=== PATIENT | female | born 1940 | race Caucasian/White ===

== ENCOUNTER → 2017-02-15 | Outpatient (CLI) | payer MEDICARE, BC ==
[~2017-02-15] MED LIST: ADVAIR DIS1 PUFF/DOS IH; ASA CHILDREN'S81 MG PO; ATORVASTATIN CA40 MG PO; CALTRATE-600 D600 MG PO; COQ-10100 MG PO; COREG DPS3.125 MG PO; ICAPS TABLET1 EACH PO; LASIX DPS20 MG PO; LIPITOR DPS40 MG PO; MAG-OX400 MG PO; MAGNESIUM100 MG PO; MIRALAX17 GM PO; MOTRIN-DPS400 MG PO; MUCINEX600 MG PO; NASACORT16.9 ML NS; NASONEX NASAL S17 GM NS; OMEGA-3 DPS1000 MG PO; PRESERVISION A1 EACH PO; PROBIOTIC1 EAC1 PO; PROVENTIL HFA6.7 GM IH; SENOKOT S1 TAB PO; TURMERIC500 MG PO; TYLENOL #3 DPS1 TAB PO; TYLENOL DPS325 MG PO; ULTRAM DPS50 MG PO; VITAMIN B-12500 MCG PO; VITAMIN B650 MG PO; VITAMIN D10000 UNIT PO; XARELTO10 MG PO; ZESTRIL DPS10 MG PO
== END | disposition home or self-care (01) ==
LOC: RAD.S 12:29
DX: Z12.31 Encounter for screening mammogram for malignant neoplasm of breast (principal); N64.89 Other specified disorders of breast

== ENCOUNTER → 2017-03-19 | Outpatient (CLI) | payer MEDICARE, BC | END | disposition home or self-care (01) | LOC: PTH.S 08:55 | DX: Z01.818 Encounter for other preprocedural examination (principal); I10 Essential (primary) hypertension ==

== ENCOUNTER 2017-04-03 05:38 | Inpatient (IN) | payer MEDICARE, BC ==
[~2017-04-03] VITALS: Ht 157.5 cm; Wt 86.1 kg
--- NOTE | ~2017-04-03 | OR ---
ADMIT: 04/03/2017 RM/LOC: 505 [facility] MR#: [id number] [address] [address] TILA VELAZQUEZ [address] [place] [address] Operative/Delivery Room Report SEX: F AGE: 76 : 1940 SURGERY DATE: 04/03/2017 SURGEON: Jorge Carreon MD GALVANIZER ZINC: REFUGIO Ortiz PREOPERATIVE DIAGNOSIS: Left knee degenerative joint disease. POSTOPERATIVE DIAGNOSIS: Left knee degenerative joint disease. OPERATION: Left total knee arthroplasty. ANESTHESIA: COMPLICATIONS: None. ESTIMATED BLOOD LOSS: 100 mL. TOTAL TOURNIQUET TIME: 60 minutes. COMPONENTS: 1. 4 nail lugged J and J femur. 2. Size 3 modular tibial tray. 3. 38 mm oval patellar button. 4. 17.5 posterior stabilized insert. DESCRIPTION OF OPERATION: The patient was taken to the operating room and the correct extremity was identified. The patient received a spinal anesthetic. The left lower extremity was prepped and draped in a standard fashion. The leg was exsanguinated and tourniquet inflated. An anterior incision was made and dissection was carried through the subcutaneous tissue. A medial parapatellar arthrotomy was performed. An appropriate medial release was performed. The patella was subluxed laterally. The infrapatellar fat pad was partially excised for exposure. At that point, the distal femur was opened up with a drill. We cut 11-mm off the distal femur in 5 degrees of valgus using an intramedullary guide. We then cut the tibia perpendicular to its long axis taking it flush with the affected side with an extramedullary guide. We then sized the femur to a size 4 and pinned this in appropriate external rotation aligning it with the epicondylar axis. We then made anterior, posterior, and chamfer cuts with the 4-in-1 cutting block. We opened up the joint space and removed the remaining posterior osteophytes, meniscus, and PCL ligament. We made our box cut centralizing the femoral component. The tibia was subluxed anteriorly, fit for a size 3 modular tibial tray, punched and drilled in appropriate external rotation. We then removed the remaining tibial osteophytes. We then cut the patella perpendicular to its long axis taking it flush with the lateral facet and fit it for a 38 mm oval patellar button restoring patellar height. We then extended the knee and opened the joint space to obtain posterior hemostasis and perform a posterior block. We then put in trial components with a 17.5 mm insert. At that point, we had full ADMIT: 04/03/2017 RM/LOC: 505 [facility] MR#: [id number] [address] TILA VELAZQUEZ [id number] [place] [address] Operative/Delivery Room Report SEX: F AGE: 76 : 1940 extension, full flexion, patella tracked centrally and no lateral release was required. The knee was also stable to varus and valgus stress testing. All trial components were removed and all the bony surfaces were Waterpik'd clean. We then cemented the tibia, femur, and patella in a standard fashion, put in the trial 17.5 mm insert and held the knee in extension. While the cement hardened, we completed our intra-articular block. Once the cement was hard, we deflated the tourniquet, obtained hemostasis, irrigated out the wound thoroughly, removed the trial insert and put in the real insert. The knee was again found to be stable with full range of motion. No Hemovac drain was used. At that point, the extensor mechanism was closed with an interrupted 0- Vicryl suture with the knee in flexion. The subcutaneous tissue was closed 2-0 Vicryl and evin were placed in the skin. Mepilex Border dressing was then applied. The patient was taken to the recovery room in stable condition with no complications. Jorge Carreon MD/ lex JOB #: [id number] CC: Jorge Carreon, Attending Physician Evie Chen, Family Physician
[~2017-04-03 05:38] MED LIST changes: -ATORVASTATIN CA40 MG PO; -MAGNESIUM100 MG PO; -MIRALAX17 GM PO; -NASACORT16.9 ML NS; -OMEGA-3 DPS1000 MG PO; -PRESERVISION A1 EACH PO; -PROBIOTIC1 EAC1 PO; -PROVENTIL HFA6.7 GM IH; -TURMERIC500 MG PO; -TYLENOL DPS325 MG PO; -ULTRAM DPS50 MG PO; -VITAMIN B650 MG PO; -XARELTO10 MG PO
[2017-04-06] MEDS ORDERED: ATORVASTATIN CA40 MG PO (19:37)
[2017-04-06] MEDS ORDERED: LASIX DPS20 MG PO (19:38)
[2017-04-06] MEDS ORDERED: ASA CHILDREN'S81 MG PO (19:38)
[2017-04-06] MEDS ORDERED: PROVENTIL HFA6.7 GM IH (19:38)
[2017-04-06] MEDS ORDERED: ADVAIR DIS1 PUFF/DOS IH (19:38)
[2017-04-06] MEDS ORDERED: PRESERVISION A1 EACH PO (19:39)
[2017-04-06] MEDS ORDERED: NASACORT16.9 ML NS (19:39)
[2017-04-06] MEDS ORDERED: COQ-10100 MG PO (19:39)
[2017-04-06] MEDS ORDERED: VITAMIN B650 MG PO (19:40)
[2017-04-06] MEDS ORDERED: OMEGA-3 DPS1000 MG PO (19:40)
[2017-04-06] MEDS ORDERED: MAGNESIUM100 MG PO (19:40)
[2017-04-06] MEDS ORDERED: TURMERIC500 MG PO (19:41)
[2017-04-06] MEDS ORDERED: PROBIOTIC1 EAC1 PO (19:41)
[2017-04-06] MEDS ORDERED: TYLENOL DPS325 MG PO (19:42)
[2017-04-06] MEDS ORDERED: SENOKOT S1 TAB PO (19:42)
[2017-04-06] MEDS ORDERED: ULTRAM DPS50 MG PO (19:42)
[2017-04-06] MEDS ORDERED: MIRALAX17 GM PO (19:42)
[2017-04-06] MEDS ORDERED: XARELTO10 MG PO (19:43)
--- NOTE | 2017-04-18 16:15 | HP ---
ADMIT: 04/03/2017 RM/LOC: W.05 [facility] MR#: [id number] [id number] [address] TILA VELAZQUEZ [address] [place] [address] Pre-OP History and Physical SEX: F AGE: 76 : 1940 DATE OF SERVICE: CHIEF COMPLAINT: Knee pain. HISTORY OF PRESENT ILLNESS: The patient is a 76-year-old female with a longstanding history of left knee pain. She has had multitude of injections and failed conservative care, now being admitted for left total knee arthroplasty. PAST MEDICAL HISTORY: Past medical problems include spinal stenosis, arthritis, asthma, and hypertension. MEDICATIONS: Include: 1. Calcium. 2. Ventolin. 3. Lisinopril. 4. Coreg. 5. Mucinex. 6. Aspirin. 7. Advair. 8. Lipitor. 9. Lasix. 10.Nasonex. ALLERGIES: NONE. SOCIAL HISTORY: Denies any significant tobacco or alcohol use. REVIEW OF SYSTEMS: Negative. PHYSICAL EXAMINATION: A healthy-appearing female, in no acute distress. Varus deformity to her left lower extremity. Pain around the medial joint ADMIT: 04/03/2017 RM/LOC: W.05 [facility] MR#: [id number] [address] [address] BETHANY VELAZQUEZZULY Tiff[place] [address] [place] [address] Pre-OP History and Physical SEX: F AGE: 76 : 1940 line. Range of motion 5 to 95 degrees. No pain in the hip. Leg is neurovascularly intact. DIAGNOSTIC DATA: X-rays AP, lateral, PA flexion view shows advanced left knee ,arthritis complete medial collapse, and no joint space remaining. IMPRESSION: Advanced left knee degenerative joint disease. PLAN: Talked about different options. Failed conservative care. Plan on doing the left Sigma total knee arthroplasty. She is aware of the risks, benefits, and options and agreed to proceed. She has been cleared and seen from a medical standpoint. Jorge Carreon MD/ lex JOB #: [id number] CC: Jorge Carreon, Attending Physician UNKNOWN, Family Physician
--- NOTE | 2017-04-21 08:57 | DS ---
ADMIT: 04/03/2017 RM/LOC: 505 [facility] MR#: [id number] [id number] [facility] [address] [place] [address] TILA VELAZQUEZ [address] [facility] [place] [address] General Discharge Summary SEX: F AGE: 76 : 1940 ADMISSION DATE: 04/03/2017 DISCHARGE DATE: 04/06/2017 REASON FOR ADMISSION: Elective left total knee arthroplasty after failing conservative care. PREOPERATIVE DIAGNOSIS: Left knee degenerative joint disease. POSTOPERATIVE DIAGNOSIS: Left knee degenerative joint disease. PROCEDURE PERFORMED: Left total knee arthroplasty. SURGEON: Jorge Carreon MD [employer] BUYER: Sarai Enamorado PA-C COMPLICATIONS: None. ESTIMATED BLOOD LOSS: 100 mL. TOURNIQUET TIME: 60 minutes. ANESTHESIA: Spinal. ACTIVE MEDICAL PROBLEMS: Spinal stenosis, arthritis, asthma, and hypertension. HOSPITAL COURSE: The patient was admitted on 04/03/2017, for elective left total knee arthroplasty done by Dr. Carreon without any complications. The patient tolerated the procedure well. Postoperatively, she did well with pain control with the use of oral pain medications. As expected, she did suffer from some acute blood-loss anemia. Her hemoglobin dropped to 9.4 on 04/06/2017, but she remained hemodynamically stable and did not require blood transfusion. By postoperative day #3, she was doing well with physical therapy; however, she did request home health care to come out to her home and help her upon discharge This was set up and she was safe, stable, and ready for discharge home with plans for outpatient physical therapy on postoperative day #3. DISCHARGE MEDICATIONS: 1. Atorvastatin 40 mg in the evening. 2. Furosemide 20 mg everyday. 3. Advair 100/50 mcg one puff twice daily for asthma. 4. Ventolin HFA 90 mcg, one to two puffs every 4 hours as needed. 5. Aspirin 81 mg everyday after Xarelto therapy has ended. 6. Nasacort 55 mcg one spray daily as needed. 7. PreserVision AREDS twice daily. 8. CoQ10 of 100 mg everyday. 9. Vitamin B12 of 50 mcg everyday. ADMIT: 04/03/2017 RM/LOC: 505 [facility] MR#: [id number] [id number] [facility] [address] [place], [place] [address] TILA VELAZQUEZ [id number] [place] [address] General Discharge Summary SEX: F AGE: 76 : 1940 10.Magnesium 100 mg everyday. 11.Fish oil 1000 mg everyday. 12.Turmeric 450 mg everyday. 13.Probiotic everyday. 14.MiraLax 17 g everyday. 15.Senokot 2 tablets twice daily. 16.Tylenol 650 mg every 6 hours as needed for pain. 17.Ultram 50 mg every 6 hours as needed for pain. 18.Xarelto 10 mg everyday for 9 days. DISCHARGE INSTRUCTIONS: The patient was discharged home with plans for outpatient physical therapy per total knee arthroplasty protocol. Follow up in the orthopedic office in 2 weeks for wound check, in 6 weeks with x-ray. Follow up with primary care as directed. REFUGIO Ortiz / Jorge Carreon MD / lex JOB #: [id number] CC: Jorge Carreon MD, Attending Physician Evie Chen MD, Family Physician
== END 2017-04-06 13:00 | disposition home health service (06) | DRG 470 ==
LOC: 5MS 05:38 → WOR 05:38 → 5MS 10:04
PROVIDERS: ADMIT Orthopaedic Surgery
PROC: 0SRD0J9 Replacement of Left Knee Joint with Synthetic Substitute, Cemented, Open Approach (ICD-10-PCS; principal; 2017-04-03)
DX: M17.12 Unilateral primary osteoarthritis, left knee (principal); D62 Acute posthemorrhagic anemia; I10 Essential (primary) hypertension; M48.00 Spinal stenosis, site unspecified; J45.909 Unspecified asthma, uncomplicated; I95.81 Postprocedural hypotension